=== PATIENT | female | born 1970 | race Two or more races ===

== ENCOUNTER 2022-04-29 17:40 | Emergency (ER) | payer SELFPAY ==
[~2022-04-29] VITALS: Ht 172.7 cm; Wt 53.1 kg
--- NOTE | 2022-04-29 17:54 | NUR ---
DR ANTONIO AT BEDSIDE FOR EVAL
--- NOTE | 2022-04-29 18:40 | NUR ---
SALINE LOCK ESTABLISHED, BLOOD DRAWN, AND SENT TO LAB
[2022-04-29 19:26] LABS: BASOPHILS # (AUTO) 0.1 K/uL (0.0-0.2); BASOPHILS % (AUTO) 0.9 % (0.0-2.0); EOSINOPHILS % (AUTO) 2.4 % (0.0-6.0); HEMATOCRIT 40 % (33-45); HEMOGLOBIN 13.6 g/dL (11.5-14.8); LYMPHOCYTES % (AUTO) 38.4 % (20.0-44.0); MEAN CORPUSCULAR HGB CONC 34 g/dl (31.0-36.0); MEAN CORPUSCULAR VOLUME 95 fL (82-100); MONOCYTES # (AUTO) 0.6 K/uL (0.1-1.30); MONOCYTES % (AUTO) 7.6 % (2.0-12.0); NEUTROPHILS % (AUTO) 50.7 % (43.0-81.0); PLATELET COUNT (AUTO) 186 K/uL (150-450); WHITE BLOOD COUNT (AUTO) 7.9 K/uL (4.3-11.0)
[2022-04-29 20:56] LABS: CALCIUM, SERUM 8.8 mg/dL (8.5-10.1); CARBON DIOXIDE 30 mmol/L (21-32); CHLORIDE 106 mmol/L (98-107); CREATININE 0.7 mg/dL (0.6-1.3); GLUCOSE 104 mg/dL (74-106); POTASSIUM 3.8 mmol/L (3.5-5.1); SODIUM SERUM 141 mmol/L (136-145); UREA NITROGEN, BLOOD 13 mg/dL (7-18)
[2022-04-29] MEDS ORDERED: IBUPROFEN 600 MG TABLET PO ONE (22:00)
[2022-04-29] MEDS ORDERED: IBUPROFEN 600 MG TABLET ONE (22:04)
[2022-04-29 22:10] VITALS: BP 121/72
[2022-04-29] MEDS ORDERED: IBUP-1955 PO (22:21)
--- NOTE | 2022-04-29 22:29 | NUR ---
Patient discharged to home in stable condition. Written and verbal after care instructions given. Patient verbalizes understanding of instruction.IV removed. Catheter intact and site benign. Pressure and 4x4 applied to site. No bleeding noted. Pt ambulatory with a steady gait
== END 2022-04-29 22:51 | disposition home or self-care (01) ==
LOC: ER 17:49
DX: R07.89 Other chest pain (principal); R20.2 Paresthesia of skin
CPT/HCPCS: 36415; 71045-TC; 80048-TC; 84484-TC; 85025-TC; 85378-TC